=== PATIENT | female | born 1940 | race Caucasian/White ===

== ENCOUNTER → 2017-09-10 | Outpatient (CLI) | payer MEDICARE ==
[2017-09-10 20:16] LABS: ALT 35 U/L (9-52); AST 25 U/L (14-36); Albumin 4.4 g/dL (3.5-5.0); Alkaline Phosphatase 113 U/L (38-126); Anion Gap 16 mmol/L; Blood Urea Nitrogen 17 mg/dL (7-17); Calcium 10.1 mg/dL (8.4-10.2); Carbon Dioxide 24 mmol/L (22-30); Chloride 98 mmol/L (98-107); Cholesterol 215 mg/dL (<200); Creatine Kinase 31 U/L (30-135); Glucose 175 mg/dL (74-99); HDL Cholesterol 54 mg/dL (40-60); LDL Cholesterol,Calculated 123 mg/dL (0-99); Potassium 4.7 mmol/L (3.5-5.1); Sodium 138 mmol/L (137-145); Total Bilirubin 0.3 mg/dL (0.2-1.3); Total Protein 7.4 g/dL (6.3-8.2); Triglycerides 188 mg/dL (<150)
[2017-09-10 20:18] LABS: Basophils # (A) 0.1 k/uL (0-0.2); Basophils % (A) 1 %; Eosinophils # (A) 0.2 k/uL (0-0.7); Eosinophils % (A) 2 %; HCT 43.2 % (34.0-46.0); HGB 13.9 gm/dL (11.4-16.0); Lymphocytes # (A) 1.7 k/uL (1.0-4.8); Lymphocytes % (A) 19 %; MCH 28.9 pg (25.0-35.0); MCHC 32.3 g/dL (31.0-37.0); MCV 89.7 fL (80.0-100.0); Mean Platelet Volume 8.1; Monocytes # (A) 0.5 k/uL (0-1.0); Monocytes % (A) 5 %; Neutrophils # (A) 6.4 k/uL (1.3-7.7); Neutrophils % (A) 72 %; Platelet Count 231 k/uL (150-450); RBC 4.82 m/uL (3.80-5.40); RDW 13.6 % (11.5-15.5); WBC 8.9 k/uL (3.8-10.6)
[2017-09-10 20:32] LABS: T4, Free (Free Thyroxine) 1.16 ng/dL (0.78-2.19)
== END | disposition home or self-care (01) ==
LOC: MMGSC 12:35
PROVIDERS: ATTEND Family Medicine
DX: E78.5 Hyperlipidemia, unspecified (principal); M79.1 Myalgia
CPT/HCPCS: 36415; 80053; 80061; 82550; 82607; 84439; 84443; 85025

== ENCOUNTER → 2018-01-03 | Outpatient (CLI) | payer MEDICARE ==
--- NOTE | 2018-01-07 11:03 | MM ---
Reason for exam: screening (asymptomatic). Last mammogram was performed 3 years and 1 month ago. History: Patient is postmenopausal. Reduction of the left breast. Reduction of the right breast. Took estrogen for 10 years. Physical Findings: A clinical breast exam by your physician is recommended on an annual basis and results should be correlated with mammographic findings. MG 3D Screening Mammo W/Cad Bilateral CC and MLO view(s) were taken. Prior study comparison: December 08, 2014, bilateral MG screening mammo w CAD. October 09, 2013, bilateral digital screening mammo w/CAD. There are scattered fibroglandular densities. Benign appearing bilateral calcifications. No suspicious abnormality. No significant changes when compared with prior studies. ASSESSMENT: Benign, BI-RAD 2 RECOMMENDATION: Routine screening mammogram of both breasts in 1 year.
== END | disposition home or self-care (01) ==
LOC: RADMAMWWP 14:50
PROVIDERS: ATTEND Family Medicine
DX: Z12.31 Encounter for screening mammogram for malignant neoplasm of breast (principal)
CPT/HCPCS: 77063; 77067

== ENCOUNTER → 2020-04-27 | Outpatient (CLI) | payer MEDICARE ==
--- NOTE | 2020-04-27 22:13 | CT ---
EXAMINATION TYPE: CT lumbar spine wo con DATE OF EXAM: 04/27/2020 4:52 PM COMPARISON: Lumbar spine x-ray 12 days ago. MRI lumbar spine January 13, 2019. HISTORY: PT c/o increased difficulty in walking over the last few years. More difficulty with RT leg CT DLP: 1554.90 mGycm Automated exposure control for dose reduction was used. Unenhanced CT of the lumbar spine was performed. Bone and soft tissue window settings are submitted as well as coronal and sagittal reconstructions. There are 5 lumbar type vertebra redemonstrated. Mild height loss superior L1 endplate redemonstrated along the right aspect. Slight grade 1 anterolisthesis L3 on L4 redemonstrated. Persistent moderate to advanced disc space narrowing with vacuum disc phenomenon and moderate spurring L4-L5 level. Persi stent vacuum disc phenomenon L5-S1 level with mild anterior spurring. Multilevel spinous process hype rtrophy. Axial images show the T12-L1 level. Mild broad disc bulge and mild facet degenerative changes mildly effacing anterior and posterior lateral thecal sac. Axial images at the L1-L2 level shows mild broad-based disc bulge mildly effacing anterior thecal sac . Axial images at L2-L3 level are felt within normal limits. Axial images at the L3-L4 level show spondylolisthesis with moderate broad-based posterior disc protr usion effacing anterior thecal sac. There is [id number] facet degenerative changes effacing pos terior lateral thecal sac. There is moderate bilateral inferior neural foraminal narrowing. Axial images at the L4-L5 level shows moderate facet degenerative changes bilaterally. There is moder ate posterior spur disc complex effacing the anterior thecal sac. There is moderate bilateral neural foraminal narrowing. Axial images at L5-S1 level shows moderate facet degenerative changes bilaterally. There is posterior spur disc complex. There is [id number] left and mild right-sided neural foraminal narrowing. There is mild to moderate calcified plaque of the abdominal aorta extending into branch vessels. IMPRESSION: Multilevel degenerative changes in the lumbar spine greatest at L3-L4 and L4-L5 levels as detailed above. No significant change or interval progression from 2019 MRI study.
== END | disposition home or self-care (01) ==
LOC: RADCTMAIN 16:26
PROVIDERS: ATTEND Orthopaedic Surgery
DX: M47.816 Spondylosis without myelopathy or radiculopathy, lumbar region (principal); Z88.5 Allergy status to narcotic agent
CPT/HCPCS: 72131

== ENCOUNTER 2020-05-27 11:51 | Day surgery (SDC) | payer MEDICARE ==
[2020-05-26 10:29] VITALS: BMI 31.1
[2020-05-27 12:10] VITALS: TEMP 98
[2020-05-27] MEDS ORDERED: LACTATED RINGERS 1,000 ML IV SCH (12:10)
[2020-05-27 12:13] LABS: Glucose,Whole Blood 100 mg/dL (75-99)
[2020-05-27] MEDS ORDERED: DEXAMETHASONE SOD PHOSPHATE 10 MG/ML 1 ML VIAL ONE (12:15)
[2020-05-27] MEDS ORDERED: IOPAMIDOL M200 10 ML VIAL ONE (12:15)
--- NOTE | 2020-05-27 12:28 | P.PCN ---
Date of Procedure: 05/27/20 Description of Procedure: PREOPERATIVE DIAGNOSIS: Lumbar radiculopathy POSTOPERATIVE DIAGNOSIS: Lumbar radiculopathy PROCEDURE 1. Transforaminal epidural steroid injection under fluoroscopic guidance right L3-L4 2. Lumbar epidurogram IMAGING Fluoroscopy was used, images where saved to the medical record ANESTHESIA: Local with 1% lidocaine 5 ml PROCEDURE DESCRIPTION / TECHNIQUE: The patient was seen and identified in the preoperative area. Risks, benefits, complications, and alternatives were discussed with the patient. The patient agreed to proceed with the procedure and signed the consent, vital signs were stable prior to the procedure. Patient was taken to the OR and time out was completed. The patient was placed in the prone position on procedure table and a pillow was placed under the abdomen to reduce lumbar lordosis. The lumbosacral area was prepped and draped in the usual sterile fashion. Vital signs were closely monitored during the procedure. Conscious sedation was used. Using oblique fluoroscopy, the chin of the "Roberot dog" at the pedicle and the skin and deeper tissues just below was localized with 1% lidocaine. Subsequently, a 25-gauge 3.5-inch spinal needle was advanced under a tunneled view fluoroscopic guidance just underneath the chin of the "Roberto dog". Under lateral fluoroscopy, the needle was then advanced to the posterior border interforaminal space. After negative aspiration of CSF and blood and with no paresthesias, 1 mL of Isovue-200 contrast dye was injected excellent epidurogram. Subsequently, a solution totalling 2ml of dexamethasone and PFNS was injected after negative aspiration (total of 10mg of dexamethasone was used). The needle was removed intact. COMPLICATIONS: None DISPOSITION: The patient was placed in a supine position and transferred to the recovery area in a stable condition for observation. There was no evidence of lower extremity motor or sensory deficit after the procedure. Patient was discharged from the recovery room after meeting discharge criteria. Home discharge instructions were given to the patient by the staff. The patient was reexamined prior to discharge. Follow up as directed.
[2020-05-27 12:41] VITALS: PULSE 101; RESP 16
[2020-05-27 12:53] LABS: Glucose,Whole Blood 128 mg/dL (75-99)
[2020-05-27 12:55] VITALS: BP 129/72
--- NOTE | 2020-05-27 13:06 | FL ---
Fluoroscopy HISTORY: Pain 4 seconds fluoroscopy time supplied to the referring clinician. 2 intraoperative C-arm images docume nt the procedure. See dictated report from anesthesia.
== END 2020-05-27 13:02 | disposition home or self-care (01) ==
LOC: ORPAIN 11:51
PROVIDERS: ATTEND Hospitalist
DX: M54.16 Radiculopathy, lumbar region (principal); M48.061 Spinal stenosis, lumbar region without neurogenic claudication; Z88.5 Allergy status to narcotic agent
CPT/HCPCS: 64483; J1100; Q9966; 62323

== ENCOUNTER → 2020-06-21 | Outpatient (CLI) | payer MEDICARE ==
[2020-06-21 11:10] VITALS: BP 122/77; PULSE 102; RESP 16; TEMP 98.4
--- NOTE | 2020-06-21 11:34 | P.PN ---
Subjective Progress Note Date: 06/21/20 Assessment visits for this 79 years old female with a chronic history of severe lower extremity pain , status post right transforaminal epidural steroid injection at L3 4, she reported that she had 0 benefit from it, he continued to have severe bilateral lower extremity pain, her MRI showed that she had bi lateral neuroforaminal stenosis , and facet joint arthropathy at L2-3 and L3 4 L4 5 and L5-S1, the pain increases with any activity, she feels some weakness in her lower extremity bilaterally, he denies any fever or night sweats, denies any change in the bowel movement or urination Objective - Vital Signs Vital signs: Vital Signs Temp 98.4 F 06/21/20 10:57 Pulse 102 H 06/21/20 10:57 Resp 16 06/21/20 10:57 BP 122/77 06/21/20 10:57 Pulse Ox 96 06/21/20 10:57 - Exam Physical Examinations : -Constitutiona : Cooperative , not in acute distress . -HEENT : nech : supple , no Lymphadenopathy , normal thyroid size . : eyes : no ptosis , no icterus, no photophobia . - neurologic : Cranial nerve II to XII intact , no focal neurological deffecit . -psychatric : alert , oriented X 3 , appropriate affect , intact judgment and insight . -Lymphatic : no Lymphadenopathy . - musculoskeltal : Lumber spine moter stegnth lower extremities ,thigh and legs 4/5 Right side , 4/5 Left side deep tendon reflexes : normal Knee Jerk , normal ankle Jerk lumber facet Loading Test = negative bilaterally Range of motion of the lumbar spine Flexion 30 degrees, extension 10 degrees strait leg raising test = negative bilaterally Fabere test= negative bilaterally Assessment and Plan Plan: Assessment and plan=1-lumbar radiculopathy. 2-lumbar foraminal stenosis. 3-lumbar spondylosis. Patient had no benefit from transforaminal epidural steroid injection at L3 4. Patient could benefit from lumbar epidural steroid injection (interlaminar at L3 4 OR L4 5 ) Time with Patient: Less than 30
== END | disposition home or self-care (01) ==
LOC: PNWHC3 10:49
PROVIDERS: ATTEND Specialist
DX: M48.061 Spinal stenosis, lumbar region without neurogenic claudication (principal); M47.26 Other spondylosis with radiculopathy, lumbar region
CPT/HCPCS: 99211

== ENCOUNTER 2020-07-15 10:09 | Day surgery (SDC) | payer MEDICARE ==
[2020-07-13 13:56] VITALS: BMI 31.6
[~2020-07-15 10:09] MED LIST: LACTATED RINGERS 1,000 ML IV SCH
[2020-07-15 10:22] VITALS: TEMP 97
[2020-07-15] MEDS ORDERED: methylPREDNISolone ACETATE 40 MG/ML 1 ML VIAL ONE (10:26)
[2020-07-15] MEDS ORDERED: IOPAMIDOL M200 10 ML VIAL ONE (10:26)
[2020-07-15 10:27] LABS: Glucose,Whole Blood 73 mg/dL (75-99)
--- NOTE | 2020-07-15 10:47 | P.PCN ---
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 3-lumbar spinal stenosis. 4-lumbar radiculopathy POSTOPERATIVE DIAGNOSIS: Same as preop diagnosis. PROCEDURE 1. Lumbar epidural steroid injection under fluoroscopic guidance at the L3-4 level. (Fluoroscopy imaging was available in radiology department) 2. Lumbar epidurogram. ANESTHESIA: Local with 1% lidocaine 3 ml . EBL: Minimal PROCEDURE INDICATION: The patient with low back pain and radiculitis symptoms unresponsive to conservative treatment. Fluoroscopy was used to optimize visualization of the needle placement and to maximize safety. PROCEDURE DESCRIPTION / TECHNIQUE: The patient was seen and identified in the preoperative area. Risks, benefits, complications including but not limited to infections ,bleeding ,allergic reaction to the medications ,nerve damage and not complete pain releife , and alternatives were discussed with the patient. The patient agreed to proceed with the procedure and signed the consent. IV was started, and vital signs were stable. Patient was taken to the OR and time out was completed. The patient was placed in the prone position on procedure table and a pillow was placed under the abdomen to reduce lumbar lordosis. The lumbosacral area was prepped and draped in the usual sterile fashion.ere closely monitored during the procedure. Conscious sedation was used during the procedure to decrease patients anxiety. Vital signs was monitered during the entire procedure. Using anterior-posterior fluoroscopy, the L3-4 interlaminar space was identified and the skin over this site was marked and then infiltrated with 1% lidocaine subcutaneously. Subsequently, a 20-gauge Tuohy epidural needle was inserted and advanced toward the epidural space using the ``Loss of resistance technique and guided by AP and lateral fluoroscopy. The correct needle position in the epidural space was verified with the injection of 2 mL of the water soluble contrast dye Isovue 200 contrast and observing an excellent epidurogram with the epidural spread of the dye, after negative aspiration for blood and CSF and in the absence of paresthesias. Again after negative aspiration, a 6 ml mixture containing 40 mg of Depo-medrol , and 2 ml of preservative free Normal Saline, and 2 ml of preservative free lidocaine 1% solution was injected and a washout of epidurogram was seen. Needle was withdrawn intact, skin was cleansed, and bandages were applied. COMPLICATIONS: None DISPOSITION / PLANS: The patient was placed in a supine position and transferred to the recovery area in a stable condition for observation. There was no evidence of lower extremity motor or sensory deficit after the procedure. Patient was discharged from the recovery room after meeting discharge criteria. Home discharge instructions were given to the patient by the staff. The patient was reexamined prior to discharge. The patient will schedule a follow up in the clinic in 2-4 weeks. We will repeat the same procedure with a few weeks , then after the next procedure,the patient will follow up with Dr. Reyes for evaluation
[2020-07-15 10:56] VITALS: RESP 18
[2020-07-15 11:13] VITALS: BP 134/72; PULSE 96
--- NOTE | 2020-07-15 11:24 | FL ---
EXAMINATION TYPE: FL guided pain mgmt statistic DATE OF EXAM: 07/15/2020 CLINICAL HISTORY: Low back pain. TECHNIQUE: Fluoroscopy. COMPARISON: None. FINDINGS: Fluoroscopic guidance was provided during pain relief procedure performed by Dr. Pisano . A total of 4 seconds of fluoroscopic time was utilized during the procedure and 1 spot images are acquired. Single image acquired shows needle localization at level of the mid lumbar spine. IMPRESSION: As Above.
== END 2020-07-15 11:34 | disposition home or self-care (01) ==
LOC: ORPAIN 10:09
PROVIDERS: ATTEND Specialist
DX: M51.16 Intervertebral disc disorders with radiculopathy, lumbar region (principal); M47.26 Other spondylosis with radiculopathy, lumbar region; M48.061 Spinal stenosis, lumbar region without neurogenic claudication; E11.9 Type 2 diabetes mellitus without complications; Z78.0 Asymptomatic menopausal state; Z88.5 Allergy status to narcotic agent
CPT/HCPCS: 62323; J1030; Q9966

== ENCOUNTER → 2020-08-09 | Outpatient (CLI) | payer MEDICARE ==
[2020-08-09 13:37] VITALS: BP 149/85; PULSE 89; RESP 18; TEMP 97.8
--- NOTE | 2020-08-09 13:49 | P.PN ---
Progress Note - Text Progress Note Date: 08/09/20 This is a follow-up visit for this 79 years old female, with a history of severe spinal stenosis at L3 4 and severe lumbar spondylosis, status post right-sided transforaminal epidural steroid injection at L3 4, and later on we did lumbar epidural steroid injections x1 , patient reported that she had 40% improvement of her symptoms she continued to have, low back pain with weakness in her lower extremity, patient will follow up with Dr. Reyes spine surgeon for evaluation
== END | disposition home or self-care (01) ==
LOC: PNWHC3 13:19
PROVIDERS: ATTEND Specialist
DX: M48.061 Spinal stenosis, lumbar region without neurogenic claudication (principal); M47.816 Spondylosis without myelopathy or radiculopathy, lumbar region
CPT/HCPCS: 99211

== ENCOUNTER → 2021-07-08 | Outpatient (CLI) | payer MEDICARE ==
--- NOTE | 2021-07-08 16:00 | MR ---
EXAMINATION TYPE: MR cervical spine wo con DATE OF EXAM: 07/08/2021 COMPARISON: None HISTORY: Difficulty walking. TECHNIQUE: Multiplanar, multisequence images of the cervical spine were acquired without contrast. FINDINGS: There is some motion on exam. Multilevel facet arthropathy changes are present. Cervical ve rtebral bodies show preserved height and alignment. There is multilevel spondylosis with endplate dis cogenic marrow signal change. Loss of disc height signal is greatest at C3-4, C5-6 consistent with di sc desiccation and degenerative disc disease. C2-C3: No evidence for degenerative disc disease. No disc bulge/herniation or protrusion. No Canal stenosis. Foramina are patent bilaterally. C3-C4: Posterior extension endplate disc complex causes anterior mass effect on the thecal sac, there may be contact with the anterior cervical cord but no significant spinal stenosis or foraminal encro achment on the right, minimal foraminal encroachment on the left suspected due to uncovertebral joint hypertrophy, facet arthropathy. C4-C5: Uncovertebral joint hypertrophy, lateral extension endplate disc complex results in some right -sided foraminal encroachment. Posterior disc bulge causes only slight anterior mass effect on the th ecal sac, no significant spinal stenosis. C5-C6: Posterior broad-based disc bulge, circumferential extension of endplate disc complex causes an terior mass effect on the thecal sac and possibly contacting the anterior cervical work. No significa nt foraminal encroachment or spinal stenosis. C6-C7: Posterior disc bulge causes anterior mass effect on the thecal sac but no significant spinal s tenosis. No significant foraminal encroachment. C7-T1: No evidence for degenerative disc disease. No disc bulge/herniation or protrusion. No Canal stenosis. Foramina are patent bilaterally. Cervical segments are intact. There is normal alignment. Cervical spinal cord is of normal signal. Craniovertebral junction relationships are within normal limits. Fluid signal is noted in the sphen oid sinus. IMPRESSION: Degenerative disc disease, foraminal encroachment, facet arthropathy as described. No significant spi nal stenosis. Sphenoid sinus disease.
== END | disposition home or self-care (01) ==
LOC: RADMRIMAIN 14:43
DX: M47.812 Spondylosis without myelopathy or radiculopathy, cervical region (principal); M50.223 Other cervical disc displacement at C6-C7 level
CPT/HCPCS: 72141

== ENCOUNTER 2022-04-28 08:30 | Day surgery (SDC) | payer MEDICARE ==
[2022-04-24 13:52] VITALS: BMI 29.0
[~2022-04-28 08:30] MED LIST changes: +LIDOCAINE 1% (10MG/ML) FOR IV START INTRADERMA PRN
[2022-04-28 09:09] VITALS: TEMP 96.9
[2022-04-28 09:13] LABS: Glucose,Whole Blood 185 mg/dL (70-110)
[2022-04-28] MEDS ORDERED: PROPOFOL 10 MG/ML 20 ML VIAL IV ONE (09:20)
--- NOTE | 2022-04-28 09:45 | P.PCN ---
Date of Procedure: 04/28/22 Procedure(s) Performed: BRIEF HISTORY: Patient is a 81-year-old pleasant female scheduled for an elective colonoscopy as a part of evaluation of abnormal PET scan that showed increased uptake in the colon with possible soft tissue mass. Patient has no prior history of colonoscopy. No lower GI symptoms. PROCEDURE PERFORMED: Colonoscopy with biopsy. PREOPERATIVE DIAGNOSIS: Abnormal PET scan that revealed increased uptake in the colon. IV sedation per Anesthesia. PROCEDURE: After informed consent was obtained, the patient, was brought into the endoscopy unit. IV sedation was administered by Anesthesia under continuous monitoring. Digital rectal examination was normal. Initially the Olympus CF-160 flexible video colonoscope was then inserted in the rectum, gradually advanced into the right colon. In the proximal ascending colon there was crowding of the mucosal folds with friable mucosa and right ascending colon stricture and the scope could not be advanced of the stricture. Multiple biopsies were done from this area. No obvious mass identified. The rest of the transverse colon, de scending colon, sigmoid colon, and rectum appeared normal. Retroflexion was performed in the rectum and no lesions were seen. The patient tolerated the procedure well. IMPRESSION: Tight ascending colon stricture in the proximal ascending colon with crowding of the mucosal folds as well as friable mucosa but no obvious mass, status post multiple biopsies to rule out neoplasm Rest of the colon appeared normal RECOMMENDATIONS: Findings of this examination were discussed with the patient as well as her family. She was advised to follow with the biopsy results. She'll be seen in office in 2 weeks.
[2022-04-28 10:05] VITALS: BP 146/83; PULSE 88; RESP 16
== END 2022-04-28 10:34 | disposition home or self-care (01) ==
LOC: ORWHC2ENDO 08:30
PROVIDERS: ATTEND Internal Medicine Gastroenterology
DX: C18.2 Malignant neoplasm of ascending colon (principal); K63.5 Polyp of colon; I10 Essential (primary) hypertension; E11.9 Type 2 diabetes mellitus without complications; Z79.4 Long term (current) use of insulin; Z79.899 Other long term (current) drug therapy; Z88.5 Allergy status to narcotic agent
CPT/HCPCS: 88305; 45380; J2704